=== PATIENT | female | born 1940 | race Hispanic/Latino ===

== ENCOUNTER 2018-12-07 11:46 | Emergency (ER) | payer BC, MEDICARE, OTHER ==
[~2018-12-07] VITALS: Ht 160 cm; Wt 64.4 kg
--- OUTSIDE RECORDS SUMMARY | 2018-12-07 11:49 | XMS REPORT ---
[facility] Address Unknown Phone Unavailable Care Team Providers Care Sales Operations Assistant Name Role Phone Unavailable Unavailable Problems This patient has no known problems. Allergies, Adverse Reactions, Alerts This patient has no known allergies or adverse reactions. Medications This patient has no known medications. Encounters Start Date/Time End Date/Time Encounter Type Admission Type Attending [facility] Facility Care Department Encounter ID 2018-12-07 10:52:01 2018-12-07 10:52:01 Outpatient [facility] [id number] 2018-12-07 08:41:07 2018-12-07 08:41:07 Outpatient [facility] [id number] 2018-12-07 00:00:00 2018-12-07 00:00:00 Outpatient [facility] [id number] 2018-12-01 00:00:00 2018-12-01 00:00:00 Outpatient [facility] [id number] 2018-11-23 08:10:35 2018-11-23 08:10:35 Outpatient [facility] [id number] 2018-11-23 00:00:00 2018-11-23 00:00:00 Outpatient [facility] [id number] 2018-11-16 09:28:06 2018-11-16 09:28:06 Outpatient [facility] [id number] 2018-06-15 00:00:00 2018-06-15 00:00:00 Outpatient [facility] [id number] 2018-05-18 12:52:28 2018-05-18 12:52:28 Outpatient [facility] [id number] 2018-04-13 15:50:23 2018-04-13 15:50:23 Outpatient [facility] [id number] 2018-04-13 15:38:17 2018-04-13 15:38:17 Outpatient [facility] [id number] 2018-04-13 13:59:15 2018-04-13 13:59:15 Outpatient [facility] [id number] 2018-04-13 13:37:54 2018-04-13 13:37:54 Outpatient [facility] [id number] 2018-03-31 00:00:00 2018-03-31 00:00:00 Outpatient [facility] [id number] 2018-03-31 00:00:00 2018-03-31 00:00:00 Outpatient [facility] [id number] 2018-01-26 10:47:36 2018-01-26 10:47:36 Outpatient [facility] [id number] 2018-01-19 00:00:00 2018-01-19 00:00:00 Outpatient [facility] [id number] 2018-01-19 00:00:00 2018-01-19 00:00:00 Outpatient [facility] [id number] 2018-01-14 09:42:50 2018-01-14 09:42:50 Outpatient [facility] [id number] 2018-01-11 00:00:00 2018-01-11 00:00:00 Outpatient [facility] [id number] 2017-12-22 10:46:24 2017-12-22 10:46:24 Outpatient [facility] [id number] 2017-11-24 14:46:52 2017-11-24 14:46:52 Outpatient [facility] [id number] 2017-11-24 08:04:57 2017-11-24 08:04:57 Outpatient [facility] [id number] 2017-11-10 14:31:51 2017-11-10 14:31:51 Outpatient [facility] [id number] 2017-11-10 13:11:09 2017-11-10 13:11:09 Outpatient [facility] [id number] 2017-11-10 00:00:00 2017-11-10 00:00:00 Outpatient [facility] [id number] 2017-11-10 00:00:00 2017-11-10 00:00:00 Outpatient [facility] [id number] 2017-10-29 07:27:42 2017-10-29 07:27:42 Outpatient [facility] [id number] 2017-10-28 12:20:26 2017-10-28 12:20:26 Outpatient [facility] [id number] 2017-10-28 11:35:31 2017-10-28 11:35:31 Outpatient [facility] [id number] 2017-10-27 12:50:56 2017-10-27 12:50:56 Outpatient [facility] [id number] 2017-10-27 00:00:00 2017-10-27 00:00:00 Outpatient [facility] [id number] 2017-10-15 15:49:57 2017-10-15 15:49:57 Outpatient [facility] [id number] 2017-10-13 08:42:14 2017-10-13 08:42:14 Outpatient [facility] [id number] 2017-10-06 11:38:47 2017-10-06 11:38:47 Outpatient [facility] [id number] 2017-10-01 08:23:43 2017-10-01 08:23:43 Outpatient [facility] [id number] 2017-09-29 11:26:44 2017-09-29 11:26:44 Outpatient [facility] [id number] 2017-09-29 11:02:44 2017-09-29 11:02:44 Outpatient [facility] [id number] 2017-09-23 06:50:29 2017-09-23 06:50:29 Outpatient [facility] [id number] 2017-09-15 08:58:10 2017-09-15 08:58:10 Outpatient [facility] [id number] 2017-08-25 08:49:11 2017-08-25 08:49:11 Outpatient [facility] [id number] 2017-08-11 09:05:38 2017-08-11 09:05:38 Outpatient [facility] [id number] 2017-08-11 08:01:38 2017-08-11 08:01:38 Outpatient [facility] [id number] 2017-02-12 08:56:37 2017-02-12 08:56:37 Outpatient [facility] [id number] 2017-02-12 08:12:28 2017-02-12 08:12:28 Outpatient [facility] [id number] 2017-01-14 09:46:41 2017-01-14 09:46:41 Outpatient [facility] [id number] 2016-12-23 10:39:58 2016-12-23 10:39:58 Outpatient [facility] [id number] 2016-12-23 09:48:02 2016-12-23 09:48:02 Outpatient [facility] [id number] 2016-12-17 08:14:30 2016-12-17 08:14:30 Outpatient [facility] [id number] 2016-12-09 00:00:00 2016-12-09 00:00:00 Outpatient [facility] [id number] 2016-10-23 00:00:00 2016-10-23 00:00:00 Outpatient [facility] [id number] 2016-09-25 10:58:51 2016-09-25 10:58:51 Outpatient [facility] [id number]
--- OUTSIDE RECORDS SUMMARY | 2018-12-07 11:49 | XMS REPORT | Clinical Summary ---
Author Author [facility] Organization [facility] Address Unknown Phone Unavailable Care Team Providers Care Full Stack Engineer Name Role Phone Rashel Ld MACHINE II TRIMMER PCP Allergies No Known Allergies Medications End Date Status Medication Sig Dispensed Refills Start Date Active ASPIRIN EC (ASPIRIN EC) Take 81 mg by 0 81 mg delayed release mouth daily. tablet Active hydrocortisone 1 % Apply to 0 topical cream affected area 2 times daily. Active nitroGLYCERIN (NITROSTAT) Dissolve 1 50 tablet 3 0.4 mg sublingual tablet under 8 tabletIndications: the tongue Abnormal EKG every 5 minutes as needed, up to 3 times. If chest pain persists, call 911. Active ergocalciferol (VITAMIN Take 1 12 capsule 0 D2) 50,000 unit capsule by 8 capsuleIndications: mouth weekly. Vitamin D deficiency Active ketoconazole (NIZORAL) 2 Apply to 30 g 4 % topical affected area 8 creamIndications: Tinea daily. corporis Active acetaminophen-codeine Take 1 tablet 60 tablet 1 (TYLENOL/CODEINE #3) by mouth 2 8 300-30 mg per times daily tabletIndications: as needed for Chronic pain of right Pain. ankle Active acetaminophen (TYLENOL) Take 500 mg 0 500 mg tablet by mouth every 6 hours as needed for Pain. Active rivaroxaban (XARELTO) 20 Take 1 tablet 90 tablet 1 mg tabletIndications: by mouth 9 Chronic deep vein daily (with thrombosis (DVT) of dinner) femoral vein of left lower extremity Active Valsartan 160 mg Take 1 tablet 90 tablet 0 tabletIndications: by mouth 9 Essential hypertension daily. Active atorvastatin (LIPITOR) 10 Take 1 tablet 90 tablet 1 mg tabletIndications: by mouth at 9 Hyperlipidemia, bedtime unspecified nightly. hyperlipidemia type Active amLODIPine (NORVASC) 5 mg Take 1 tablet 30 tablet 1 tabletIndications: by mouth 9 Essential hypertension daily. Active hydroCHLOROthiazide Take 1/2 90 tablet 1 (HYDRODIURIL) 25 mg tablet by 9 tabletIndications: mouth daily. Essential hypertension Active alendronate (FOSAMAX) 70 Take 1 tablet 12 tablet 3 mg tabletIndications: once a week 9 Senile osteoporosis on empty stomach with 8 oz of water and remain upright for 30 minutes. Active dexlansoprazole Take 1 60 capsule 1 (DEXILANT) 30 mg delayed capsule by 9 release mouth daily. capsuleIndications: Gastroesophageal reflux disease, esophagitis presence not specified 04/13/2018 Discontinued ketoconazole (NIZORAL) 2 Apply to 30 g 0 % topical affected area 6 creamIndications: Tinea daily. corporis 05/18/2018 Discontinued famotidine (PEPCID) 20 mg Take 1 tablet 180 tablet 0 tabletIndications: by mouth 2 8 Dyspepsia times daily. 04/13/2018 Discontinued losartan (COZAAR) 100 mg Take 1 tablet 90 tablet 1 tabletIndications: by mouth 8 Essential hypertension daily. 04/13/2018 Discontinued alendronate (FOSAMAX) 70 Take 1 tablet 12 tablet 3 mg tabletIndications: once a week 8 Senile osteoporosis on empty stomach with 8 oz of water and remain upright for 30 minutes. 04/13/2018 Discontinued hydroCHLOROthiazide Take 0.5 90 tablet 1 (HYDRODIURIL) 25 mg tablets by 8 tabletIndications: mouth daily. Essential hypertension 01/19/2018 Discontinued amLODIPine (NORVASC) 2.5 Take 1 tablet 30 tablet 1 mg tabletIndications: by mouth 8 Essential hypertension daily. 04/13/2018 Discontinued atorvastatin (LIPITOR) 10 Take 1 tablet 90 tablet 1 mg tabletIndications: by mouth at 8 Hyperlipidemia, bedtime unspecified nightly. hyperlipidemia type 04/13/2018 Discontinued rivaroxaban (XARELTO) 15 Take 1 tablet 42 tablet 0 11/24/201 mg tabletIndications: by mouth 2 8 Chronic deep vein times daily thrombosis (DVT) of (with meals) femoral vein of left For 21 days.. lower extremity 04/13/2018 Discontinued rivaroxaban (XARELTO) 20 Take 1 tablet 90 tablet 1 11/24/201 mg tabletIndications: by mouth 8 Chronic deep vein daily (with thrombosis (DVT) of dinner) START femoral vein of left on .. lower extremity 03/31/2018 Discontinued amLODIPine (NORVASC) 2.5 Take 1 tablet 30 tablet 1 01/20/201 mg tabletIndications: by mouth 8 Essential hypertension daily. 04/13/2018 Discontinued amLODIPine (NORVASC) 2.5 Take 1 tablet 30 tablet 1 04/01/201 mg tabletIndications: by mouth 8 Essential hypertension daily. 05/18/2018 Discontinued amLODIPine (NORVASC) 2.5 Take 1 tablet 30 tablet 1 201 mg tabletIndications: by mouth 8 Essential hypertension daily. 11/07/2018 Discontinued losartan (COZAAR) 100 mg Take 1 tablet 90 tablet 1 tabletIndications: by mouth 8 Essential hypertension daily. 11/16/2018 Discontinued hydroCHLOROthiazide Take 1/2 90 tablet 1 (HYDRODIURIL) 25 mg tablet by 8 tabletIndications: mouth daily. Essential hypertension 05/18/2018 Discontinued rivaroxaban (XARELTO) 20 Take 1 tablet 90 tablet 1 201 mg tabletIndications: by mouth 8 Chronic deep vein daily (with thrombosis (DVT) of dinner) femoral vein of left lower extremity 11/16/2018 Discontinued atorvastatin (LIPITOR) 10 Take 1 tablet 90 tablet 1 201 mg tabletIndications: by mouth at 8 Hyperlipidemia, bedtime unspecified nightly. hyperlipidemia type 04/13/2018 Discontinued acetaminophen-codeine Take 1 tablet 60 tablet 1 (TYLENOL/CODEINE #3) by mouth 8 300-30 mg per every 4 hours tabletIndications: Senile as needed for osteoporosis Pain. 05/18/2018 Discontinued alendronate (FOSAMAX) 70 Take 1 tablet 12 tablet 3 mg tabletIndications: once a week 8 Senile osteoporosis on empty stomach with 8 oz of water and remain upright for 30 minutes. 12/07/2018 Discontinued alendronate (FOSAMAX) 70 Take 1 tablet 12 tablet 3 mg tabletIndications: once a week 9 Senile osteoporosis on empty stomach with 8 oz of water and remain upright for 30 minutes. 11/16/2018 Discontinued amLODIPine (NORVASC) 5 mg Take 1 tablet 30 tablet 1 tabletIndications: by mouth 9 Essential hypertension daily. 12/07/2018 Discontinued dexlansoprazole Take 1 60 capsule 1 (DEXILANT) 30 mg delayed capsule by 9 release mouth daily. capsuleIndications: Gastroesophageal reflux disease, esophagitis presence not specified 11/08/2018 Discontinued losartan (COZAAR) 100 mg Take 1 tablet 90 tablet 1 tabletIndications: by mouth 9 Essential hypertension daily. 11/08/2018 Discontinued losartan (COZAAR) 100 mg Take 1 tablet 90 tablet 1 tabletIndications: by mouth 9 Essential hypertension daily. contacted for alternative 11/08/2018 Discontinued Valsartan 80 mg Take 1 tablet 90 tablet 1 tabletIndications: by mouth 9 Essential hypertension daily. 11/16/2018 Discontinued Valsartan 160 mg Take 1 tablet 90 tablet 0 tabletIndications: by mouth 9 Essential hypertension daily. 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- 11/24/2017 hx of using coumadin in past Macrocytosis without anemia 09/15/2017 Depression, unspecified depression type- with memory concerns- states feels 09/15/2017 lonely - no children ,single ; had partner in past ;lives with ANA MARIA- Screening for breast cancer- no breast pain as of 06/2016 ; mammogram normal 06/03/201604/2016 Osteoporosis 11/28/2015 Closed fracture of lateral malleolus of right fibula with routine healing 11/07/2015 Right leg pain 10/29/2015 Vitamin D deficiency 05/09/2015 H/O colonoscopy- 2013 - internal hemorrhoids -needs in 2019 rpt 03/19/2015 HTN (hypertension) 09/18/2014 Dyslipidemia 09/18/2014 Hand arthritis 09/18/2014 Pterygium of both eyes 05/29/2014 Hyperopia with astigmatism and presbyopia 01/16/2014 Combined form of senile cataract 01/16/2014 Fall Encounters Care Team Description Date Type Specialty Kiera Jerry MD Shelton, George Jr., MD Chronic deep vein thrombosis (DVT) of proximal vein of lower extremity, unspecified laterality (Primary Dx); Senile osteoporosis; Gastroesophageal reflux disease, esophagitis presence not specified; Localized edema ; Bilateral leg pain; Ataxic gait ; Other specified abnormal findings of blood chemistry ; Dyspnea, unspecified type; At high risk for pulmonary embolism 12/07/2018 Office Visit [facility] Adriana Shyann Glory Interpretation 12/07/2018 Telephone Mari Guerra Yamini Interpretation 12/07/2018 Telephone 12/07/2018 Travel Darrius Urban Jr., MD Encounter for monitoring COLLEEN-inhibitor therapy (Primary Dx); Essential hypertension; Hyperlipidemia, unspecified hyperlipidemia type 11/16/2018 Office Visit [facility] Andi Sandeep Interpretation 11/16/2018 Telephone 11/16/2018 Travel Ld Kiser NP Essential hypertension (Primary Dx) 11/08/2018 Orders Only Gerontology Otis Roland MD Essential hypertension 11/08/2018 Refill Gerontology Ld Kiser NP Essential hypertension 11/08/2018 Refill Gerontology Otis Roland MD Essential hypertension 11/07/2018 Refill Gerontology Ld Kiser NP Essential hypertension (Primary Dx); Need for influenza vaccination; Senile osteoporosis; Chronic deep vein thrombosis (DVT) of femoral vein of left lower extremity; Gastroesophageal reflux disease, esophagitis presence not specified 05/18/2018 Office Visit Gerontology 05/18/2018 Travel Ld Kiser NP 04/13/2018 Ancillary Radiology Procedure Ld Kiser NP Vitamin D deficiency (Primary Dx); Essential hypertension; Tinea corporis; Chronic deep vein thrombosis (DVT) of femoral vein of left lower extremity; Hyperlipidemia, unspecified hyperlipidemia type; Chronic pain of right ankle; Senile osteoporosis; Medication refill; Left leg pain 04/13/2018 Office Visit Gerontology Lyndsey Berry, OD Combined forms of age-related cataract of both eyes (Primary Dx); Pterygium eye, bilateral; Bilateral dry eyes; Refractive error 04/13/2018 Office Visit Ophthalmology 04/13/2018 Travel Kiera Jerry MD Vitamin D deficiency 03/31/2018 Refill Family Practice Kiera Jerry MD Essential hypertension 03/31/2018 Refill Family Practice Ld Kiser NP Essential hypertension (Primary Dx); Gastroesophageal reflux disease, esophagitis presence not specified; Medication refill 01/28/2018 Office Visit Gerontology Otis Roland MD Essential hypertension 01/19/2018 Refill Gerontology Kiera Jerry MD Jahan-Tigh, Richard R, MD Seborrheic keratoses, inflamed (Primary Dx) 01/14/2018 Office Visit Dermatology Kiera Jerry MD Bichanga, Karla Yaritza, LVN Canceled (Other) 12/22/2017 Nurse Only after 12/06/2017 Immunizations Name Administration Dates Next Due Herpes Zoster Vaccine In 05/07/2015 Clinic Influenza Vaccine 02/25/2016, 03/19/2015 Influenza, 05/18/2018 Vaccine<FLUCELVAX>(Multi- Dose) PCV 13 (Pnuemococcal 08/11/2017 Conjugated 13 Valent) Pneumoccoccal 10/03/2013, 10/03/2013 (Deferred: Patient already had this immunization) Tdap Tetanus, diphtheria, 10/03/2013 acellular pertussis Vaccine Family History Medical History Relation Name Comments Arthritis Mother Cancer Mother Diabetes Mother Hypertension Mother Relation Name Status Comments Father Mother Social History Date Tobacco Use Types Packs/Day Years Used Never Smoker Smokeless Tobacco: Never Used Tobacco Cessation: Counseling Given: No Drinks/Week oz/Week Comments Alcohol Use 0 Standard drinks or equivalent 0.0 No Food Insecurity Answer Date Recorded Within the past 12 months, you worried that your Never true 12/17/2016 food would run out before you got money to buy more. Within the past 12 months, the food you bought Never true 12/17/2016 just didn't last and you didn't have money to get more. Sex Assigned at Date Recorded Not on file Industry Job Start Date Occupation Not on file Not on file Not on file Travel End Travel History Travel Start No recent travel history available. Last Filed Vital Signs Reading Time Taken Comments Vital Sign 139/83 12/07/2018 8:41 AM CDT Blood Pressure 73 12/07/2018 8:41 AM CDT Pulse 36.4 C (97.6 F) 12/07/2018 8:41 AM CDT Temperature 20 12/07/2018 8:41 AM CDT Respiratory Rate - - Oxygen Saturation - - Inhaled Oxygen Concentration 63.6 kg (140 lb 3.2 oz) 12/07/2018 8:41 AM CDT Weight 160 cm (5' 3") 12/07/2018 8:41 AM CDT Height 24.84 12/07/2018 8:41 AM CDT Body Mass Index Plan of Treatment Care Team Description Date Type Specialty Referral#[id number] 04/21/2019 Office Visit Ophthalmology Health Maintenance Due Date Last Done Comments IMM Pneumococcal Age 67 Completed 10/03/2013 and Up Implants Device Identifier Shelf Expiration Date Model / Serial / Lot Implanted Type 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[employer] Small Frag Locking Right: [employer] Implanted: Qty: 1 on 11/15/2015 by Kavon Salguero MD at [facility] Description: 7 hole Plate: [[id number]] 3.5 Non-locking screws: [[id number] (14mm) x2], [[id number] (16mm) x1] 4.0 Cancellous screw: [8753-41-0 (18mm) x1] Procedures Comments Procedure Name Priority Date/Time Associated Diagnosis BUNCR POC Routine 12/07/2018 11:05 AM CDT BASIC METABOLIC PANEL Routine 11/23/2018 Encounter for monitoring 8:10 AM CDT COLLEEN-inhibitor therapy XRAY TIBIA AND FIBULA 2 Routine 04/13/2018 Left leg pain VIEWS 3:45 PM DIALYSIS TECHNICIAN VIT D, 25-HYDROXY Routine 04/13/2018 Vitamin D deficiency 3:43 PM DIALYSIS TECHNICIAN after 12/06/2017 Results * BUNCR POC (12/07/2018 11:05 AM CDT) Urea Nitrogen 13 7 - 18 mg/dL [facility] Creatinine POC 0.6 0.6 - 1.3 mg/dL [facility] GFR, Estimated 89 (L) >=90 mL/min/1.73 m2 [facility] Specimen Blood, venous Performing Organization Address [place] [place] [facility] * BASIC METABOLIC PANEL (11/23/2018 8:10 AM CDT) Sodium 138 136 - 145 mmol/L [facility] Potassium 4.4 3.5 - 5.1 mmol/L [facility] Chloride 101 98 - 107 mmol/L [facility] CO2 28 21 - 31 mmol/L [facility] Urea Nitrogen 12.0 7.0 - 25.0 mg/dL [facility] Creatinine 0.7 0.6 - 1.2 mg/dL [facility] Glucose 95 70 - 110 mg/dL [facility] Calcium, Total 9.2 8.6 - 10.3 mg/dL [facility] GFR, Estimated 81 (L) >=90 mL/min/1.73 m2 [facility] Anion Gap 9 5 - 16 mmol/L [facility] Specimen Blood Performing Organization Address [facility] [place] Number [facility] [address] [place] [address] * XRAY TIBIA AND FIBULA 2 VIEWS (04/13/2018 3:45 PM DIALYSIS TECHNICIAN) Specimen Impressions Performed At IMPRESSION: [facility] No radiographic abnormality. This [facility] radiology report is a preliminary resident dictation until finalized by an attending.Changes to this preliminary report may occur in an additional preliminary or finalized version. Dictated By: Ramone Villa MD, 04/13/2018 4:20 PM I have reviewed the study and agree with the findings in this report. Signed By: Abril Golden MD, 04/15/2018 8:52 AM Narrative Performed At EXAM: XR LEFT TIBIA 2 VIEWS [facility] DATE:04/13/2018 3:46 PM INDICATION: left lower leg bone pain. Left leg pain COMPARISON: None TECHNIQUE:AP and lateral radiographs of the tibia DISCUSSION: No acute fracture or malalignment is identified. A fabella is noted. No soft tissue abnormality is identified. Procedure Note Interface, Rad/Mammog In - 04/15/2018 8:57 AM DIALYSIS TECHNICIAN EXAM: XR LEFT TIBIA 2 VIEWS DATE: 04/13/2018 3:46 PM INDICATION: left lower leg bone pain. Left leg pain COMPARISON: None TECHNIQUE: AP and lateral radiographs of the tibia DISCUSSION: No acute fracture or malalignment is identified. A fabella is noted. No soft tissue abnormality is identified. IMPRESSION IMPRESSION: No radiographic abnormality. This [facility] radiology report is a preliminary resident dictation until finalized by an attending. Changes to this preliminary report may occur in an additional preliminary or finalized version. Dictated By: Ramone Villa MD, 04/13/2018 4:20 PM I have reviewed the study and agree with the findings in this report. Signed By: Abril Golden MD, 04/15/2018 8:52 AM Performing Organization Address City/State/Zipcode Phone Number SMS * VIT D, 25-HYDROXY (04/13/2018 3:43 PM DIALYSIS TECHNICIAN) Vit D, 46.0 30 - 100 ng/mL [facility] 25-Hydroxy Comment: IMMUNOLOGY Vitamin D deficiency has been defined by the [place] [employer] and Endocrine Society guideline as a level of serum 25-OH Vitamin D less than 20 ng/mL. The Endocrine Society further defines Vitamin D insufficiency as a level between 21 and 29 ng/mL and sufficiency as a level between 30 and 100 ng/mL. Specimen Performing Organization Address City/State/Zipcode Phone Number [facility] IMMUNOLOGY after 12/06/2017 Insurance Type Payer Benefit Subscriber ID Effective Phone Address Plan / Dates Group MEDICARE MEDICARE xxxxxxxxxxx 2018- [phone] Present [id number] [place] [address] [employer] MEDICAID HMO UNITED xxxxxxxxx 2018- [phone] [facility] Present [id number] MEDICAID [place], [place] [id number] (Self) Antonio Segura Psych Self 1940 [id number] (Home) [place] [address]
[2018-12-07] MEDS ORDERED: ASPIRIN 81 MG CHEW TAB PO ONE (12:30)
[2018-12-07] MEDS ORDERED: TRAMADOL HCL 50 MG TAB PO ONE (12:30)
[2018-12-07 12:59] LABS: BASOPHILS % 0.2 % (0.0-1.0); EOSINOPHILS # (AUTO) 0.1 (0.0-0.4); EOSINOPHILS % 0.8 % (0.0-6.0); HEMATOCRIT 40.4 % (34.2-44.1); HEMOGLOBIN 13.3 g/dL (12.0-16.0); LYMPHOCYTES % 21.4 % (18.0-39.1); MEAN CORPUSCULAR HEMOGLOBIN 30.4 pg (28-32); MEAN CORPUSCULAR HGB CONC 32.9 g/dL (31-35); MEAN CORPUSCULAR VOLUME 92.2 fL (81-99); MONOCYTES # (AUTO) 0.5 (0.2-0.8); MONOCYTES % 5.6 % (4.4-11.3); NEUTROPHILS # (AUTO) 6.7 (2.1-6.9); NEUTROPHILS % 71.8 % (38.7-80.0); PLATELET COUNT 212 x10e3/uL (140-360); RED BLOOD COUNT 4.38 x10e6/uL (3.6-5.1); RED CELL DISTRIBUTION WIDTH 13.2 % (11.7-14.4)
[2018-12-07 13:00] LABS: BILIRUBIN,URINE NEGATIVE (NEGATIVE); CLARITY,URINE SL CLOUDY (CLEAR); COLOR,URINE YELLOW (YELLOW); KETONES,URINE NEGATIVE (NEGATIVE); LEUKOCYTE ESTERASE ,URINE NEGATIVE (NEGATIVE); NITRITE,URINE NEGATIVE (NEGATIVE); PROTEIN,URINE DIPSTICK NEGATIVE (NEGATIVE); URINE UROBILINOGEN 0.2 mg/dL (0.2 - 1)
[2018-12-07 13:14] LABS: INR 0.89; PROTHROMBIN TIME 12.5 seconds (11.9-14.5)
[2018-12-07 13:15] LABS: PARTIAL THROMBOPLASTIN TIME 32.2 seconds (23.8-35.5)
[2018-12-07 13:24] LABS: ALANINE AMINOTRANSFERASE 23 IU/L (0-55); ALBUMIN 4.1 g/dL (3.5-5.0); ALBUMIN/GLOBULIN RATIO 1.2 (0.8-2.0); ALKALINE PHOSPHATASE 61 IU/L (40-150); ANION GAP 15.6 mmol/L (8-16); BLOOD UREA NITROGEN 12 mg/dL (7-26); BUN/CREATININE RATIO 17 (6-25); CALCIUM 9.5 mg/dL (8.4-10.2); CARBON DIOXIDE 23 mmol/L (22-29); CHLORIDE 101 mmol/L (98-107); CREATINE KINASE 80 IU/L (29-168); EST GLOMERULAR FILTRATION RATE > 60 ML/MIN (60-); GLUCOSE 104 mg/dL (74-118); POTASSIUM 3.6 mmol/L (3.5-5.1); SODIUM 136 mmol/L (136-145)
[2018-12-07 13:35] LABS: BACTERIA,URINE MODERATE /HPF; EPITHELIAL CELLS,URINE FEW /LPF
--- NOTE | 2018-12-07 14:49 | Diagnostic Imaging Report ---
EXAMINATION: CHEST SINGLE (PORTABLE) INDICATION: Pain COMPARISON: None FINDINGS: LINES/TUBES:None LUNGS:The lungs are well-inflated. No focal consolidation or pulmonary edema. PLEURA:No pleural effusion or pneumothorax. MEDIASTINUM:The cardiomediastinal silhouette appears normal in size and shape. Atherosclerotic calcifications of the thoracic aorta. BONES/SOFT TISSUES:No acute osseous injury. ABDOMEN:No free air under the diaphragm. IMPRESSION: No focal pneumonia or pulmonary edema. Signed by: Vita Grant MD on 12/07/2018 2:46 PM
--- NOTE | 2018-12-07 15:03 | Diagnostic Imaging Report ---
EXAM: CT Chest WITH contrast- Pulmonary Embolism Protocol INDICATION: Hypoxia, history of pulmonary embolism COMPARISON: Chest radiograph of 12/07/2018 TECHNIQUE: Chest was scanned utilizing a multidetector helical scanner from the lung apex through the level of the diaphragm after administration of IV contrast. Thin section reconstructions were obtained with special concentration on the pulmonary arteries. Coronal and sagittal reformations were obtained. Pulmonary embolism protocol was performed. IV CONTRAST: 100 cc of Isovue 370 RADIATION DOSE: Total DLP: 476.9 mGy*cm Dose modulation, iterative reconstruction, and/or weight based adjustment of the mA/kV was utilized to reduce the radiation dose to as low as reasonably achievable. COMPLICATIONS: None FINDINGS: LINES/ TUBES: None. PULMONARY ARTERIES: No filling defect is identified within the pulmonary arteries to the segmental level. The subsegmental pulmonary arteries are not well opacified. Main pulmonary artery measures 2.5 cm in diameter. LUNGS AND AIRWAYS: The central airways are patent. No focal consolidation or pulmonary edema. Mild bibasilar dependent subsegmental atelectasis. No suspicious pulmonary nodules. PLEURA: The pleural spaces are clear. HEART AND MEDIASTINUM: There is a 1.8 cm left thyroid cyst. Subcentimeter right thyroid lobe cyst with associated calcifications. Prominent 15 x 9 mm pretracheal lymph node. Right hilar lymphadenopathy measures 18 x 14 mm. No axillary, subpectoral, or internal mammary lymph node. The heart is mildly enlarged. Atherosclerotic calcifications involve the coronary arteries and thoracic aorta. UPPER ABDOMEN: Moderate sliding-type hiatal hernia with approximately 50% of the stomach above the diaphragm. The distal esophagus is patulous and fluid-filled. Hepatic cysts measure up to 2.8 cm. The remainder of the partially visualized liver, gallbladder, spleen, pancreas, adrenals appear unremarkable. 1.3 cm right posterior kidney upper pole exophytic cyst. BONES: The visualized bony thorax is within normal limits. SOFT TISSUES: Unremarkable. IMPRESSION: No pulmonary embolism. 1.8 cm left thyroid cyst and subcentimeter right thyroid cyst with associated calcifications. Recommend further evaluation with thyroid ultrasound on a nonemergent basis. Nonspecific right hilar enlarged lymph node. Moderate sliding hiatal hernia with approximately 50% of the stomach above the diaphragm. Distal esophagus is patulous and fluid-filled. Signed by: Vita Grant MD on 12/07/2018 3:00 PM
== END 2018-12-07 17:05 | disposition home or self-care (01) ==
LOC: ER 11:46
DX: R06.09 Other forms of dyspnea (principal); R07.89 Other chest pain; M79.662 Pain in left lower leg; M79.661 Pain in right lower leg; I10 Essential (primary) hypertension; E78.5 Hyperlipidemia, unspecified; Z86.718 Personal history of other venous thrombosis and embolism
CPT/HCPCS: 36415; 71045; 71260; 80053; 81001; 82550; 82553; 83880; 84484; 85025; 85610; 85730; 87086; 93005; 93970; 99284

== ENCOUNTER → 2020-02-21 | Day surgery (SDC) | payer BC, OTHER ==
[~2020-02-21] MED LIST: ALENDRONATE SOD70 MG PO; BALANCED SALT SOLN (OPTH) 15 ML BTL IO ONE; BUPIVACAINE HC 0.75% PF 10ML VIAL INJ ONE; FENTANYL CITRATE/PF 100MCG/2 ML INJ ONE; LIDOCAINE HCL 1% 30ML-PF VIAL ONE; LOSARTAN POTAS100 MG PO; MIDAZOLAM HCL 2 MG/2 ML VIAL ONE; NEOMYCIN/POLYMYXIN/DEX (OPTH) 3.5 GM TUBE ONE; POVIDONE IODINE 5% (OPTH) 30 ML BTL ONE
[2020-02-21 07:45] VITALS: BP 142/73
--- NOTE | 2020-02-25 11:39 | Operative Report ---
DATE OF PROCEDURE: 02/21/2020 SURGEON: Yasir Austin MD PREOPERATIVE DIAGNOSIS: Very large nasal pterygium, left eye. POSTOPERATIVE DIAGNOSIS: Very large nasal pterygium, left eye. PROCEDURES: 1. Pterygium excision, left eye nasal. 2. Amniotic membrane graft placement, left eye nasal. 3. Superficial keratectomy, left eye nasal. 4. Mitomycin C 0.025% for 60 seconds. ANESTHESIA: MAC. COMPLICATIONS: None. DESCRIPTION OF PROCEDURE: The patient was taken to the operating room, where she received tetracaine drops placed on the left eye. The patient's eye was prepped and draped in the usual sterile ophthalmic fashion. The lid speculum was placed in the left eye. A 6-0 sterile stay suture was placed at the limbus and the pterygium was localized. A marking pen was used to outline the edges of the pterygium. Lidocaine 2% without epinephrine was injected to the pterygium and Bobo scissors 0.12 forceps were used to excise the pterygium from the sclera and cornea, this was sent to pathology, once it was removed, Wet-field cautery was used to cauterize the vessels from the sclera. A bur was used to perform a superficial keratectomy and removed the residual debris from the cornea. Once this was done, mitomycin was soaked in the cottonoid and concentration was 0.025% was placed in the edge of the conj time for 60 seconds. BSS solution was used to irrigate this off once it was removed from the edge of the alex. The amniotic graft was measured 10 x 15 mm, it was secured using fibrin and thrombin glue. Excess tissue and glue were removed with 0.12 forceps and Bobo scissors, and the tissue was tucked underneath the edge of the conjunctiva that had previously been cut. The patient had Maxitrol ointment, patch and Franco shield placed on the eye. The patient tolerated the procedure well. The patient will be seen in my office tomorrow. The amniotic graft serial number was [id number], expiration date is 12/24/2021. Yasir Austin MD SES/MODL /[id number]
== END | disposition home or self-care (01) ==
LOC: OR 05:30
PROVIDERS: ATTEND Ophthalmology
DX: H11.052 Peripheral pterygium, progressive, left eye (principal); I10 Essential (primary) hypertension; M81.0 Age-related osteoporosis without current pathological fracture; Z01.812 Encounter for preprocedural laboratory examination; Z11.59 Encounter for screening for other viral diseases; D64.9 Anemia, unspecified
CPT/HCPCS: 65426; 88304; J2001; U0002; J2250; J3010; V2790

== ENCOUNTER → 2020-03-07 | Day surgery (SDC) | payer BC, MEDICARE, OTHER ==
[~2020-03-07] MED LIST changes: -BUPIVACAINE HC 0.75% PF 10ML VIAL INJ ONE; +LIDOCAINE 2% /EPINEPHRINE 20 ML SDV INJ ONE; -LIDOCAINE HCL 1% 30ML-PF VIAL ONE; +[UNRECOGNIZED DRUG - OTHER] OP ONE
[2020-03-07 13:30] VITALS: BP 145/73
--- NOTE | 2020-03-13 00:24 | Operative Report ---
DATE OF PROCEDURE: 03/07/2020 SURGEON: Yasir Austin MD PREOPERATIVE DIAGNOSIS: Large nasal pterygium in the right eye. POSTOPERATIVE DIAGNOSIS: Large nasal pterygium in the right eye. PROCEDURE: 1. Pterygium excision, right eye nasal. 2. Amniotic membrane graft placement, right eye nasal. 3. Superficial keratectomy, right eye nasal. 4. Mitomycin-C placement on the conjunctiva for 60 seconds at 0.025 mg/mL. ANESTHESIA: MAC. COMPLICATIONS: None. Amniotic membrane graft serial number is [id number]. DESCRIPTION OF PROCEDURE: The patient was taken to the operating room where she had tetracaine drops placed in the right eye. The patient was prepped and draped in the usual sterile ophthalmic way. A lid speculum was placed in the right eye. A 6-0 sterile stay suture was placed at the limbus and the pterygium was marked and identified using a mary lou marker. The pterygium was anesthetized using 0.2 mL of 1% lidocaine with epinephrine 0.3 mL actually. Once this was done, Bobo scissors with a 0.12 forceps were used to remove the pterygium away from the sclera and the cornea. This was then sent to pathology. Wet-field cautery was used to control any bleeding. A bur was used to perform a superficial keratectomy to remove the residual debris from the cornea. The amniotic membrane was measured to size and measured by 10 x 15 mm. Mitomycin 0.025 mg/mL was placed at the edge of the conj and cottonoid for 60 seconds. Copious amounts of BSS solution were used to irrigate this off. Again, wet-field cautery was used to control any bleeding. The amniotic membrane graft was secured using fibrin and thrombin glue and excess glue and tissue were cut to size using 0.12 forceps and Bobo scissors. The patient had Maxitrol ointment patch and Franco shield placed on the eye. The patient was sent to the recovery room in good condition. MD LIZ Laughlin/MODL /[id number]
== END | disposition home or self-care (01) ==
LOC: OR 10:27
PROVIDERS: ATTEND Ophthalmology
DX: H11.051 Peripheral pterygium, progressive, right eye (principal); I10 Essential (primary) hypertension; M81.0 Age-related osteoporosis without current pathological fracture
CPT/HCPCS: 65426; 88304; J2001; J7315; V2790; J2250; J3010

== ENCOUNTER → 2022-02-12 | Day surgery (SDC) | payer MEDICARE, OTHER ==
[2022-02-10 09:19] LABS: BASOPHILS % 0.3 % (0.0-1.0); EOSINOPHILS # (AUTO) 0.1 (0.0-0.4); EOSINOPHILS % 0.8 % (0.0-6.0); HEMATOCRIT 41.7 % (34.2-44.1); HEMOGLOBIN 13.1 g/dL (12.0-16.0); LYMPHOCYTES # (AUTO) 1.9 (1.0-3.2); LYMPHOCYTES % 24.3 % (18.0-39.1); MEAN CORPUSCULAR HEMOGLOBIN 30.2 pg (28-32); MEAN CORPUSCULAR HGB CONC 31.4 g/dL (31-35); MEAN CORPUSCULAR VOLUME 96.1 fL (81-99); MONOCYTES # (AUTO) 0.6 (0.2-0.8); MONOCYTES % 7.2 % (4.4-11.3); NEUTROPHILS # (AUTO) 5.3 (2.1-6.9); NEUTROPHILS % 67.1 % (38.7-80.0); PLATELET COUNT 177 x10e3/uL (140-360); RED BLOOD COUNT 4.34 x10e6/uL (3.6-5.1); RED CELL DISTRIBUTION WIDTH 13.2 % (11.7-14.4)
[2022-02-10 10:00] LABS: ANION GAP 13.4 mmol/L (8-16); CALCIUM 9.5 mg/dL (8.4-10.2); CREATININE, SERUM 0.69 mg/dL (0.57-1.11); POTASSIUM 4.4 mmol/L (3.5-5.1)
[~2022-02-12] MED LIST changes: +ATORVASTATIN CA10 MG PO; +BUPIVACAINE HC 0.75% PF 10ML VIAL INJ ONE; +CYCLOPENTOLATE HCL 2% OPTH SOLN 2 ML BTL OP ONE; +EPINEPHRINE HCL 1:1000 1ML 1 MG/ML AMP ONE; -FENTANYL CITRATE/PF 100MCG/2 ML INJ ONE; +GATIFLOXACIN(OPTH) 5 ML LIQD ONE; -LIDOCAINE 2% /EPINEPHRINE 20 ML SDV INJ ONE; +METFORMIN HCL500 MG PO; -MIDAZOLAM HCL 2 MG/2 ML VIAL ONE; -NEOMYCIN/POLYMYXIN/DEX (OPTH) 3.5 GM TUBE ONE; +NEURONTIN100 MG PO; +PHENYLEPHRINE HCL 2 ML DROPS ONE; +PILOCARPINE HCL(OPTH) 15 ML LIQD ONE; +TOBRAMYCIN/DEXAMETHASONE(OPTH) 3.5 GM TUBE ONE; +VITAMIN D3125 MCG PO; -[UNRECOGNIZED DRUG - OTHER] OP ONE
[2022-02-12 09:40] VITALS: BP 139/89
== END | disposition home or self-care (01) ==
LOC: OR 08:03
PROVIDERS: ATTEND Ophthalmology
DX: H25.12 Age-related nuclear cataract, left eye (principal); E11.9 Type 2 diabetes mellitus without complications; I10 Essential (primary) hypertension; E78.5 Hyperlipidemia, unspecified; Z01.810 Encounter for preprocedural cardiovascular examination; Z01.812 Encounter for preprocedural laboratory examination; Z79.84 Long term (current) use of oral hypoglycemic drugs; Z79.82 Long term (current) use of aspirin; Z79.899 Other long term (current) drug therapy
CPT/HCPCS: 36415 ×2; 66984; 80048; 82948; 85025; 93005; J0171